=== PATIENT | female | born 1985 | race Caucasian/White ===

== ENCOUNTER → 2017-08-04 | Outpatient (CLI) | payer OTHER ==
[~2017-08-04] MED LIST: ALBU.083IS IH; ALBU90I INH; ALBU90OI61 INH; AMIT25 PO; AMOCLA875 PO; AMOX500 PO; ANTOXYBENA OT; AZIT250 PO; CYCL10 PO; Cefpodoxime Pr100 MG PO; DOXY100 PO; HYDACE5 PO; HYDCHL25 PO; IBUP800 PO; METO25ER PO; METR500 PO; MICROZIDE12.5 M1 PO; MULVITMINE PO; Norco 5-325 Ta1 EACH PO; OXYACE5T PO; OXYC5; PANT20 PO; PRED20 PO; PROM25 PO; Pepcid40 MG PO; Percocet 5-3251 EACH PO; Pyridium200 MG PO; RXERYTOPTH OP; SERT50; SUCR1 PO; SULTRIDS PO; TRAZ50 PO; VENL37.5; VICODIN 5-3001 EACH; VICODIN 5-3001 EACH PO
[2017-08-04 16:22] LABS: Protein, Urine Random 22.3 mg/dL (0.0-11.9)
== END | disposition home or self-care (01) ==
LOC: OLS 11:30
PROVIDERS: Internal Medicine
DX: I10 Essential (primary) hypertension (principal); E61.2 Magnesium deficiency
CPT/HCPCS: 82570; 84156

== ENCOUNTER → 2017-08-18 | Outpatient (CLI) | payer OTHER | LOC: LAB EV 18:51 | DX: N39.0 Urinary tract infection, site not specified (principal) | CPT/HCPCS: 87077; 87086; 87186 ==

== ENCOUNTER 2017-08-20 00:05 | Emergency (ER) | payer OTHER ==
[~2017-08-20] VITALS: Ht 162.6 cm; Wt 102.1 kg
[~2017-08-20 00:05] MED LIST changes: -Cefpodoxime Pr100 MG PO; -METO25ER PO; -PROM25 PO; -Pyridium200 MG PO
[2017-08-20] MEDS ORDERED: METO25ER PO (00:53)
[2017-08-20 01:02] LABS: Source, Urine Clean Catch
[2017-08-20 01:10] LABS: Appearance, Urine Cloudy (Clear); Bilirubin, Urine Neg (Neg); Blood, Urine 5+ (Neg); Color, Urine Amber (P-Yellow); Glucose Qualitative, Urine Neg (Neg); Ketones, Urine 1+ (Neg); Leukocyte Esterase, Urine 3+ (Neg); Nitrite, Urine Pos (Neg); Protein, Urine 3+ (Neg); Urobilinogen, Urine 1+ (Normal)
[2017-08-20 01:16] LABS: Bacteria Many /hpf; Red Blood Cells, Urine 0-2 /hpf (0-2); Squamous Epithelial Cells Few /hpf (Few); White Blood Cells, Urine TNTC /hpf (0-5)
[2017-08-20] MEDS ORDERED: PROM25 PO (01:29)
[2017-08-20] MEDS ORDERED: Pyridium200 MG PO (01:29)
[2017-08-20] MEDS ORDERED: Cefpodoxime Pr100 MG PO (01:29)
== END 2017-08-20 01:56 | disposition home or self-care (01) ==
LOC: ER 00:05
PROVIDERS: Physician Assistant
DX: N39.0 Urinary tract infection, site not specified (principal); Z88.1 Allergy status to other antibiotic agents; Z88.2 Allergy status to sulfonamides; Z91.013 Allergy to seafood; Z79.899 Other long term (current) drug therapy; J45.909 Unspecified asthma, uncomplicated; Z87.891 Personal history of nicotine dependence
CPT/HCPCS: 36415; 81001; 87077; 87086; 87186; 96365; 96375; 99283; J0696; J1200; J2405; J7030

== ENCOUNTER 2019-02-12 12:07 | Emergency (ER) | payer OTHER ==
[~2019-02-12] VITALS: Ht 162.6 cm; Wt 104.8 kg
[~2019-02-12 12:07] MED LIST changes: +Cefpodoxime Pr100 MG PO; +METO25ER PO; +PROM25 PO; +Pyridium200 MG PO
[2019-02-12 12:45] LABS: BASOPHILS ABSOLUTE AUTO 0.06 K/mm3 (0.00-0.23); BASOPHILS PERCENT AUTO 1 % (0-2); EOSINOPHILS ABSOLUTE AUTO 0.15 K/mm3 (0.00-0.68); EOSINOPHILS PERCENT AUTO 1 % (0-6); Hematocrit 42.5 % (33.0-51.0); Hemoglobin 14.1 g/dL (11.5-16.0); IMMATURE GRAN ABSOLUTE AUTO 0.04 K/mm3 (0.00-0.10); IMMATURE GRAN PERCENT AUTO 0 % (0-1); LYMPHOCYTES ABSOLUTE AUTO 3.26 K/mm3 (0.84-5.20); LYMPHOCYTES PERCENT AUTO 30 % (21-46); MONOCYTES ABSOLUTE AUTO 0.63 K/mm3 (0.16-1.47); MONOCYTES PERCENT AUTO 6 % (4-13); Mean Corpuscular HGB 29.1 pg (26.0-34.0); Mean Corpuscular HGB Conc 33.2 g/dL (31.5-36.5); Mean Corpuscular Volume 88 fL (80-100); Mean Platelet Volume 9.3 fL (9.1-12.4); NEUTROPHILS ABSOLUTE AUTO 6.68 K/mm3 (1.96-9.15); NEUTROPHILS PERCENT AUTO 62 % (41-73); Platelet Count 312 K/mm3 (150-400); RDW Coefficient Variation 11.8 % (11.7-14.2); RDW Standard Deviation 37.7 fL (35.1-46.3); Red Blood Cell Count 4.84 M/mm3 (3.80-5.20); White Blood Cell Count 10.82 K/mm3 (4.00-11.30)
[2019-02-12 13:06] LABS: Alanine Aminotransfer (ALT/SGP 42 U/L (12-78); Albumin, Blood 3.8 g/dL (3.4-5.0); Alk Phos 36 U/L (50-136); Anion Gap 7 mmol/L (6-16); Aspartate Aminotrans (AST/SGOT 24 U/L (12-37); Bilirubin, Total 0.2 mg/dL (0.1-1.0); Blood Urea Nitrogen 6 mg/dL (8-24); Bun/Creatinine Ratio 9.9 (12.0-20.0); CO2, Blood 26 mmol/L (21-32); Calcium, Blood 8.7 mg/dL (8.5-10.1); Chloride, Blood 105 mmol/L (98-108); Creatinine, Blood 0.61 mg/dL (0.40-1.00); Globulin, Blood 3.8 g/dL (2.2-4.0); Glomerular Filtration Rate >60 (60-); Glucose, Blood 91 mg/dL (70-99); Sodium, Blood 138 mmol/L (136-145); Total Protein, Blood 7.6 g/dL (6.4-8.2)
[2019-02-12 16:06] LABS: Bilirubin, Urine Neg (Neg); Blood, Urine 2+ (Neg); Glucose Qualitative, Urine Neg (Neg); Ketones, Urine Neg (Neg); Leukocyte Esterase, Urine 1+ (Neg); Nitrite, Urine Neg (Neg); Protein, Urine Neg (Neg); Urobilinogen, Urine NORM (Normal)
[2019-02-12 16:34] LABS: Appearance, Urine Clear (Clear); Color, Urine Yellow (P-Yellow)
[2019-02-12 16:35] LABS: Bacteria Rare /hpf; Squamous Epithelial Cells Few /hpf (Few); White Blood Cells, Urine 0-2 /hpf (0-5)
== END 2019-02-12 17:27 | disposition home or self-care (01) ==
LOC: ER 12:07
PROVIDERS: Physician Assistant
DX: N83.202 Unspecified ovarian cyst, left side (principal); D25.9 Leiomyoma of uterus, unspecified; J45.909 Unspecified asthma, uncomplicated; Z88.1 Allergy status to other antibiotic agents; Z88.2 Allergy status to sulfonamides; Z91.013 Allergy to seafood; Z88.8 Allergy status to other drugs, medicaments and biological substances; Z79.899 Other long term (current) drug therapy; Z87.891 Personal history of nicotine dependence
CPT/HCPCS: 36415; 76830; 76856; 80053; 81001; 81025; 83690; 85025; 87086; 99284-25

== ENCOUNTER → 2019-11-11 | Outpatient (CLI) | payer OTHER ==
[2019-11-12 15:09] LABS: HPV 16 Negative (Negative); HPV 18 Negative (Negative); HPV OTHER HR TYPES Negative (Negative)
== END | disposition home or self-care (01) ==
LOC: LAB 16:28 → LAB SHORT 16:28
PROVIDERS: Advanced Practice Midwife
DX: Z01.419 Encounter for gynecological examination (general) (routine) without abnormal findings (principal)
CPT/HCPCS: 87624; G0123

== ENCOUNTER → 2019-11-11 | Outpatient (CLI) | payer OTHER | END | disposition home or self-care (01) | LOC: LAB 09:00 → LAB SHORT 09:00 | DX: N92.0 Excessive and frequent menstruation with regular cycle (principal) | CPT/HCPCS: 88305 ==

== ENCOUNTER 2020-03-01 14:25 | Emergency (ER) | payer OTHER ==
[~2020-03-01] VITALS: Ht 162.6 cm; Wt 99.3 kg
== END 2020-03-01 18:00 | disposition home or self-care (01) ==
LOC: ER 14:25
DX: S46.012A Strain of muscle(s) and tendon(s) of the rotator cuff of left shoulder, initial encounter (principal); J45.909 Unspecified asthma, uncomplicated; Z88.1 Allergy status to other antibiotic agents; Z88.2 Allergy status to sulfonamides; Z88.8 Allergy status to other drugs, medicaments and biological substances; Z91.013 Allergy to seafood; Z87.891 Personal history of nicotine dependence; Z79.899 Other long term (current) drug therapy; X50.1XXA Overexertion from prolonged static or awkward postures, initial encounter; W01.0XXA Fall on same level from slipping, tripping and stumbling without subsequent striking against object, initial encounter
CPT/HCPCS: 73030; 99283-25

== ENCOUNTER → 2020-03-29 | Outpatient (CLI) | payer OTHER | END | disposition home or self-care (01) | LOC: LAB 19:33 → LAB SHORT 19:33 | DX: N39.0 Urinary tract infection, site not specified (principal) | CPT/HCPCS: 87077; 87086; 87186 ==

== ENCOUNTER 2020-07-06 07:22 | Day surgery (SDC) | payer OTHER ==
[~2020-07-06] VITALS: Ht 162.6 cm; Wt 103.3 kg
[~2020-07-06 07:22] MED LIST changes: +AMIT50 PO; +Prinivil10 MG PO
--- NOTE | 2020-07-06 07:46 | NUR ---
Ambulatory in Day Surgery History, Chart, Medications and Allergies reviewed before start of procedure. Lungs clear T/O to Auscultation. Pre-Op teaching done. Pt verbalizes understanding.
--- NOTE | 2020-07-06 12:11 | NUR ---
ARRIVED FROM PACU VIA GURNEY, DROWSY BUT A&O X3, C/O FEELING LIKE VOIDING, PT ASSSISTED TO THE BATHROOM, UNABLE TO VOID AT THIS TIME, LESLYE ROBLEDO'Matt IN OR PER ARMANDO JUARES, CONT. TO MONITOR FOR ANY CHANGES, ASSIST PRN, MEDICATE FOR PAIN PRN.
--- NOTE | 2020-07-06 12:36 | NUR ---
PT GAVE STUDENT NURSE PERMISSION FOR CARE AT 0800 ON 07/06/20.
--- NOTE | 2020-07-06 17:59 | NUR ---
AMBULATING DOWN THE [place] WITH , PT HAD SOME NAUSEA EARLIER BUT STATES NAUSEA IS BETTER AFTER ZOFRAN GIVEN, RATES PAIN AT 4/10, VOIDING WITHOUT DIFFICULTY, PLAN DC HOME THIS EVENING.
--- NOTE | 2020-07-06 18:42 | NUR ---
DC'D HOME WITH , DC INSTRUCTIONS GIVEN, VERBALIZED UNDERSTANDING, REPORTS PAIN IS TOLERABLE AND NAUSEA IS BETTER.
--- NOTE | 2020-07-07 08:00 | NUR ---
07/07/20 0800 Luz Maria Cabrera VERIFICATIONS: EDIT CHART.
== END 2020-07-06 18:39 | disposition home or self-care (01) ==
LOC: ORSCMMR 07:22 → ORD 07:30 → ORSCMMR 07:30 → SURS 11:43 → ORSCMMR 18:39
DX: N92.0 Excessive and frequent menstruation with regular cycle (principal); N94.6 Dysmenorrhea, unspecified; N80.0 Endometriosis of uterus; K66.0 Peritoneal adhesions (postprocedural) (postinfection); N80.3 Endometriosis of pelvic peritoneum; I10 Essential (primary) hypertension; Z79.899 Other long term (current) drug therapy; E66.01 Morbid (severe) obesity due to excess calories; Z68.39 Body mass index [BMI] 39.0-39.9, adult
CPT/HCPCS: 58571; S2900; 36415; 86850; 86900; 86901; 88307; A9270; J0690; J1100; J1885; J2250; J2370; J2405; J2704; J3010; J7120

== ENCOUNTER 2021-02-04 16:58 | Emergency (ER) | payer OTHER ==
[~2021-02-04] VITALS: Ht 162.6 cm; Wt 104.3 kg
[2021-02-04 18:02] LABS: BASOPHILS ABSOLUTE AUTO 0.07 K/mm3 (0.00-0.23); BASOPHILS PERCENT AUTO 1 % (0-2); EOSINOPHILS ABSOLUTE AUTO 0.18 K/mm3 (0.00-0.68); EOSINOPHILS PERCENT AUTO 2 % (0-6); Hematocrit 41.1 % (33.0-51.0); Hemoglobin 13.7 g/dL (11.5-16.0); IMMATURE GRAN ABSOLUTE AUTO 0.06 K/mm3 (0.00-0.10); IMMATURE GRAN PERCENT AUTO 1 % (0-1); LYMPHOCYTES ABSOLUTE AUTO 2.27 K/mm3 (0.84-5.20); LYMPHOCYTES PERCENT AUTO 20 % (21-46); MONOCYTES ABSOLUTE AUTO 0.74 K/mm3 (0.16-1.47); MONOCYTES PERCENT AUTO 7 % (4-13); Mean Corpuscular HGB 29.2 pg (26.0-34.0); Mean Corpuscular HGB Conc 33.3 g/dL (31.5-36.5); Mean Corpuscular Volume 88 fL (80-100); Mean Platelet Volume 9.2 fL (9.1-12.4); NEUTROPHILS ABSOLUTE AUTO 7.79 K/mm3 (1.96-9.15); NEUTROPHILS PERCENT AUTO 70 % (41-73); Platelet Count 320 K/mm3 (150-400); RDW Coefficient Variation 12.1 % (11.7-14.2); RDW Standard Deviation 38.7 fL (35.1-46.3); Red Blood Cell Count 4.69 M/mm3 (3.80-5.20); White Blood Cell Count 11.11 K/mm3 (4.00-11.30)
[2021-02-04 18:30] LABS: Alanine Aminotransfer (ALT/SGP 56 U/L (12-78); Albumin, Blood 3.7 g/dL (3.4-5.0); Alk Phos 38 U/L (50-136); Anion Gap 5 mmol/L (6-16); Aspartate Aminotrans (AST/SGOT 27 U/L (12-37); Bilirubin, Total 0.3 mg/dL (0.1-1.0); Blood Urea Nitrogen 7 mg/dL (8-24); Bun/Creatinine Ratio 9.2 (12.0-20.0); CO2, Blood 25 mmol/L (21-32); Calcium, Blood 9.1 mg/dL (8.5-10.1); Chloride, Blood 107 mmol/L (98-108); Creatinine, Blood 0.76 mg/dL (0.40-1.00); Globulin, Blood 3.7 g/dL (2.2-4.0); Glomerular Filtration Rate >60 (60-); Glucose, Blood 102 mg/dL (70-99); Potassium, Blood 3.9 mmol/L (3.5-5.5); Sodium, Blood 137 mmol/L (136-145); Total Protein, Blood 7.4 g/dL (6.4-8.2); Troponin I <0.015 ng/mL (0.000-0.040)
[2021-02-13] MEDS ORDERED: PRED20 PO (00:16)
[2021-02-13] MEDS ORDERED: ONDA4ODT MM (00:16)
== END 2021-02-05 01:47 | disposition home or self-care (01) ==
LOC: ER 16:58
PROVIDERS: Emergency Medicine
DX: R06.02 Shortness of breath (principal); J45.909 Unspecified asthma, uncomplicated; Z20.822 Contact with and (suspected) exposure to COVID-19; Z87.891 Personal history of nicotine dependence; Z79.899 Other long term (current) drug therapy; Z88.1 Allergy status to other antibiotic agents; Z88.2 Allergy status to sulfonamides; Z91.013 Allergy to seafood
CPT/HCPCS: 36415; 71045; 71260; 80053; 84484; 85025; 85379; 93005; 93010; 99284-25; Q9967

== ENCOUNTER 2021-02-08 02:33 | Emergency (ER) | payer OTHER ==
[~2021-02-08] VITALS: Ht 162.6 cm; Wt 104.3 kg
[2021-02-08] MEDS ORDERED: HYDPAM25 (02:55)
[2021-02-13] MEDS ORDERED: PRED20 PO (00:16)
[2021-02-13] MEDS ORDERED: ONDA4ODT MM (00:16)
== END 2021-02-08 04:15 | disposition home or self-care (01) ==
LOC: ER 02:33
DX: U07.1 COVID-19 (principal); J45.909 Unspecified asthma, uncomplicated; Z88.1 Allergy status to other antibiotic agents; Z88.2 Allergy status to sulfonamides; Z88.8 Allergy status to other drugs, medicaments and biological substances; Z91.013 Allergy to seafood; Z79.899 Other long term (current) drug therapy; Z87.891 Personal history of nicotine dependence
CPT/HCPCS: 96360; 99283-25; J7030

== ENCOUNTER 2021-02-10 00:51 | Emergency (ER) | payer OTHER ==
[~2021-02-10] VITALS: Ht 162.6 cm; Wt 104.3 kg
[~2021-02-10 00:51] MED LIST changes: +HYDPAM25
[2021-02-10 02:26] LABS: BASOPHILS ABSOLUTE AUTO 0.02 K/mm3 (0.00-0.23); BASOPHILS PERCENT AUTO 0 % (0-2); EOSINOPHILS ABSOLUTE AUTO 0.05 K/mm3 (0.00-0.68); EOSINOPHILS PERCENT AUTO 1 % (0-6); Hematocrit 40.7 % (33.0-51.0); Hemoglobin 13.3 g/dL (11.5-16.0); IMMATURE GRAN ABSOLUTE AUTO 0.04 K/mm3 (0.00-0.10); IMMATURE GRAN PERCENT AUTO 1 % (0-1); LYMPHOCYTES ABSOLUTE AUTO 1.85 K/mm3 (0.84-5.20); LYMPHOCYTES PERCENT AUTO 24 % (21-46); MONOCYTES ABSOLUTE AUTO 0.44 K/mm3 (0.16-1.47); MONOCYTES PERCENT AUTO 6 % (4-13); Mean Corpuscular HGB 28.3 pg (26.0-34.0); Mean Corpuscular HGB Conc 32.7 g/dL (31.5-36.5); Mean Corpuscular Volume 87 fL (80-100); Mean Platelet Volume 9.2 fL (9.1-12.4); NEUTROPHILS ABSOLUTE AUTO 5.41 K/mm3 (1.96-9.15); NEUTROPHILS PERCENT AUTO 69 % (41-73); Platelet Count 196 K/mm3 (150-400); RDW Coefficient Variation 12.4 % (11.7-14.2); RDW Standard Deviation 39.8 fL (35.1-46.3); White Blood Cell Count 7.81 K/mm3 (4.00-11.30)
[2021-02-10 02:46] LABS: Alanine Aminotransfer (ALT/SGP 46 U/L (12-78); Albumin, Blood 3.7 g/dL (3.4-5.0); Alk Phos 34 U/L (50-136); Anion Gap 7 mmol/L (6-16); Aspartate Aminotrans (AST/SGOT 27 U/L (12-37); Bilirubin, Total 0.3 mg/dL (0.1-1.0); Blood Urea Nitrogen 6 mg/dL (8-24); Bun/Creatinine Ratio 8.3 (12.0-20.0); CO2, Blood 27 mmol/L (21-32); Calcium, Blood 8.4 mg/dL (8.5-10.1); Chloride, Blood 104 mmol/L (98-108); Creatinine, Blood 0.72 mg/dL (0.40-1.00); Globulin, Blood 3.7 g/dL (2.2-4.0); Glomerular Filtration Rate >60 (60-); Glucose, Blood 96 mg/dL (70-99); Potassium, Blood 3.6 mmol/L (3.5-5.5); Sodium, Blood 138 mmol/L (136-145); Total Protein, Blood 7.4 g/dL (6.4-8.2); Troponin I <0.015 ng/mL (0.000-0.040)
[2021-02-10 03:01] LABS: SARS-Cov-2 (COVID-19) PCR, MMC POSITIVE (NEGATIVE)
[2021-02-10] MEDS ORDERED: ALBU90OI INH (03:25)
[2021-02-13] MEDS ORDERED: PRED20 PO (00:16)
[2021-02-13] MEDS ORDERED: ONDA4ODT MM (00:16)
== END 2021-02-10 03:50 | disposition home or self-care (01) ==
LOC: ER 00:51
PROVIDERS: Emergency Medicine
DX: U07.1 COVID-19 (principal); J45.909 Unspecified asthma, uncomplicated; Z88.1 Allergy status to other antibiotic agents; Z88.2 Allergy status to sulfonamides; Z91.013 Allergy to seafood; Z88.8 Allergy status to other drugs, medicaments and biological substances; Z79.899 Other long term (current) drug therapy; Z87.891 Personal history of nicotine dependence
CPT/HCPCS: 71045; 80053; 83880; 84484; 85025; 94640; 99284-25; U0004

== ENCOUNTER 2021-02-15 18:09 | Emergency (ER) | payer OTHER ==
[~2021-02-15] VITALS: Ht 162.6 cm; Wt 104.3 kg
[~2021-02-15 18:09] MED LIST changes: +ALBU90OI INH; +ONDA4ODT MM
== END 2021-02-15 20:41 | disposition home or self-care (01) ==
LOC: ER 18:09
DX: U07.1 COVID-19 (principal); J12.82 Pneumonia due to coronavirus disease 2019; J45.909 Unspecified asthma, uncomplicated; Z88.1 Allergy status to other antibiotic agents; Z88.2 Allergy status to sulfonamides; Z88.8 Allergy status to other drugs, medicaments and biological substances; Z91.013 Allergy to seafood; Z79.899 Other long term (current) drug therapy; Z87.891 Personal history of nicotine dependence
CPT/HCPCS: 96361; 96374; 96375; 99284-25; J1885; J2405

== ENCOUNTER → 2021-02-27 | Outpatient (CLI) | payer OTHER | END | disposition home or self-care (01) | LOC: LAB SHORT 11:57 → LAB 11:57 | DX: N39.0 Urinary tract infection, site not specified (principal) | CPT/HCPCS: 87077; 87086; 87186 ==

== ENCOUNTER 2021-11-20 22:29 | Emergency (ER) | payer OTHER ==
[~2021-11-20] VITALS: Ht 162.6 cm; Wt 108.9 kg
[2021-11-21] MEDS ORDERED: OXYC5 PO (01:34)
== END 2021-11-21 01:36 | disposition home or self-care (01) ==
LOC: ER 22:29
DX: S80.12XA Contusion of left lower leg, initial encounter (principal); S80.11XA Contusion of right lower leg, initial encounter; I10 Essential (primary) hypertension; V89.2XXA Person injured in unspecified motor-vehicle accident, traffic, initial encounter; Z87.891 Personal history of nicotine dependence; Z79.52 Long term (current) use of systemic steroids; Z79.899 Other long term (current) drug therapy
CPT/HCPCS: 73590; 99284-25; A9270

== ENCOUNTER 2022-05-03 13:43 | Emergency (ER) | payer SELFPAY ==
[~2022-05-03] VITALS: Ht 162.6 cm; Wt 108.9 kg
[~2022-05-03 13:43] MED LIST changes: +OXYC5 PO
[2022-05-03 15:36] LABS: Influenza B, PCR NEGATIVE (NEGATIVE); Resp Syncytial Virus, PCR NEGATIVE (NEGATIVE); SARS-Cov-2 (COVID-19) PCR, MMC NEGATIVE (NEGATIVE)
[2022-05-03 16:09] LABS: Influenza A, PCR POSITIVE (NEGATIVE)
[2022-05-03] MEDS ORDERED: Tamiflu75 MG PO (16:42)
[2022-05-03] MEDS ORDERED: ONDA4ODT MM (16:42)
== END 2022-05-03 17:09 | disposition home or self-care (01) ==
LOC: ER 13:43
PROVIDERS: Physician Assistant
DX: J10.1 Influenza due to other identified influenza virus with other respiratory manifestations (principal); J45.909 Unspecified asthma, uncomplicated; Z87.891 Personal history of nicotine dependence; Z20.822 Contact with and (suspected) exposure to COVID-19; Z88.2 Allergy status to sulfonamides; Z88.6 Allergy status to analgesic agent; Z88.1 Allergy status to other antibiotic agents; Z91.013 Allergy to seafood
CPT/HCPCS: 0241U

== ENCOUNTER → 2022-09-12 | Outpatient (CLI) | payer BC, OTHER ==
[~2022-09-12] MED LIST changes: +BENZ100A PO; +Tamiflu75 MG PO
== END | disposition home or self-care (01) ==
LOC: LAB SHORT 19:08 → LAB 19:08
DX: N39.0 Urinary tract infection, site not specified (principal)
CPT/HCPCS: 87077; 87086; 87186

== ENCOUNTER → 2023-11-23 | Outpatient (CLI) | payer OTHER | LOC: LAB 13:45 → LAB SHORT 13:45 | DX: N39.0 Urinary tract infection, site not specified (principal) | CPT/HCPCS: 87077; 87086; 87186 ==

== ENCOUNTER 2024-01-05 18:38 | Emergency (ER) | payer OTHER ==
[~2024-01-05] VITALS: Ht 162.6 cm; Wt 106.6 kg
[2024-01-05 18:59] VITALS: BP 133/95
== END 2024-01-05 20:06 | disposition home or self-care (01) ==
LOC: ER 18:38
DX: J20.9 Acute bronchitis, unspecified (principal); J45.909 Unspecified asthma, uncomplicated; I10 Essential (primary) hypertension; Z88.2 Allergy status to sulfonamides; Z88.8 Allergy status to other drugs, medicaments and biological substances; Z91.013 Allergy to seafood; Z79.52 Long term (current) use of systemic steroids; Z79.899 Other long term (current) drug therapy; Z87.891 Personal history of nicotine dependence
CPT/HCPCS: 71046

== ENCOUNTER 2024-09-25 17:50 | Emergency (ER) | payer OTHER ==
[~2024-09-25] VITALS: Ht 162.6 cm; Wt 103.9 kg
[2024-09-25 18:11] VITALS: BP 142/99
[2024-09-25] MEDS ORDERED: Lidocaine 4% 1 Patch TOP ONE (18:50)
[2024-09-25] MEDS ORDERED: Cyclobenzaprine HCl 10 MG Tab PO ONE (18:50)
[2024-09-25] MEDS ORDERED: Acetaminophen 500 MG Tab PO ONE (18:50)
[2024-09-25] MEDS ORDERED: Ketorolac Tromethamine 30mg Vial IM ONE (18:50)
[2024-09-25] MEDS ORDERED: LIDO700A20 TOP (19:37)
[2024-09-25] MEDS ORDERED: ACET500 PO (19:37)
[2024-09-25] MEDS ORDERED: IBUP600 PO (19:37)
[2024-09-25] MEDS ORDERED: CYCL10 PO (19:37)
== END 2024-09-25 19:55 | disposition home or self-care (01) ==
LOC: ER 17:50
DX: M62.838 Other muscle spasm (principal); Z87.891 Personal history of nicotine dependence; J45.909 Unspecified asthma, uncomplicated; I10 Essential (primary) hypertension; Z88.2 Allergy status to sulfonamides; Z88.9 Allergy status to unspecified drugs, medicaments and biological substances; Z88.8 Allergy status to other drugs, medicaments and biological substances; Z91.038 Other insect allergy status; Z79.1 Long term (current) use of non-steroidal anti-inflammatories (NSAID); Z79.51 Long term (current) use of inhaled steroids; Z79.899 Other long term (current) drug therapy; Z79.891 Long term (current) use of opiate analgesic; Z79.890 Hormone replacement therapy; Z79.52 Long term (current) use of systemic steroids; Z79.83 Long term (current) use of bisphosphonates; Z79.84 Long term (current) use of oral hypoglycemic drugs
CPT/HCPCS: 73030; 96372; 99283-25; A9270; J1885